=== PATIENT | male | born 1955 | race Caucasian/White ===

== ENCOUNTER 2017-01-23 08:12 | Day surgery (SDC) | payer OTHER ==
[~2017-01-23] VITALS: Ht 185.4 cm; Wt 105.0 kg
[~2017-01-23 08:12] MED LIST: ASPI325T32 PO; ATOR20TA65 PO; GEMF600T3 PO; LOSA100T29 PO; Sodium Chloride LOK Flush 10 mL Syringe IV PRN; ZOLP10TA5 PO; fentaNYL-PF 50 mCg/mL 2 mL Inj IVPUSH PRN
[2017-01-23 08:28] VITALS: BP 133/77; PULSE 62; RESP 16; O2SAT 96
[2017-01-23] MEDS: 0.9% Sodium Chloride 1,000 ML IV SCH ×2 (09:08→09:22)
[2017-01-23 09:30] VITALS: BP 131/64; PULSE 56; RESP 16; O2SAT 98
[2017-01-23 09:40] VITALS: BP 115/67; PULSE 67; RESP 16; O2SAT 96
--- NOTE | 2017-01-23 09:55 | ENDO ---
[address] [address] ENDOSCOPY PROCEDURE PATIENT: MELO RAZO : 1955 MR#: [id number] ADMIT: 01/23/2017 JOB ID: [id number] DATE: 01/23/2017 PREOPERATIVE DIAGNOSIS: Personal history of colon polyps. POSTOPERATIVE DIAGNOSIS: Two descending colon polyps. OPERATION: Colonoscopy to cecum with snare polypectomy with cautery. SURGEON: Terry Vieira M.D. INDICATIONS: The patient is a 61-year-old man who a year ago had six colon polyps. He is now here for followup. FINDINGS: He had a fair prep. The scope was advanced into the terminal ileum and was advanced about a foot and the mucosa of the terminal ileum was normal. As the scope was withdrawn over 17 minutes and 10 seconds, two polyps were identified very close to each other in the proximal descending colon. They were removed with a snare, the first was a cold snare, the second was with cautery. Both were retrieved and submitted as a single specimen. No other polyps were identified and retroflexed views of the rectum were normal. I saw no inflammatory lesions and I did not identify any diverticula. DESCRIPTION OF PROCEDURE: The procedure and sedation plan was discussed with the patient and nursing staff, and a procedural time-out was held. He received 5 mg of Versed and 100 mcg of fentanyl. A digital rectal examination was performed. The Olympus PCF H 190 DL video colonoscope was advanced transanally, advanced to the cecum and into the terminal ileum. Then withdrawn with the results of procedures as discussed above. The patient tolerated the procedure well. There were no apparent complications. IMPRESSION: Two proximal descending colon polyps, histology pending. RECOMMENDATIONS: Repeat colonoscopy five years.
--- NOTE | 2017-01-30 09:30 | PATH ---
SURGICAL PATHOLOGY Attending Physician:Feroz Garcia CASE STATUS: Signed Out PATIENT NAME: MELO RAZO PID: [id number] : 1955 DATE COLLECTED:01/23/2017 15:51 SPECIMEN: Colon, Polyp CLINICAL HISTORY: 1. DESCENDING COLON POLYP FINAL DIAGNOSIS: Descending Colon, Polyp, Biopsy: Tubular adenoma; negative for high-grade dysplasia. ICD10: K63.5 GROSS DESCRIPTION: The specimen is received in formalin, labeled with the patient's name, sublabeled as descending colon polyp, and consists of a fry-white glistening rubbery sessile polyp (0.5 x 0.3 x 0.2 cm) multiple fragments of resendiz glistening translucent tissue (0.5 x 0.4 x 0.1 cm in aggregate). Ink code: black-resection margin. Section code: (A) bisected polyp and tissue. Specimen is entirely submitted. 01/23/17 ICD-9 CODES: CPT CODES: 1: 59498 Electronically Signed Out Judy Brown MD [facility] [address], [place] [address] Technical component performed at [facility], [address] [place] [address] [address], [place], [address]
== END 2017-01-23 23:59 | disposition home or self-care (01) ==
LOC: END 08:12
PROVIDERS: ATTEND Surgery
DX: D12.4 Benign neoplasm of descending colon (principal); Z86.010 Personal history of colon polyps; E66.9 Obesity, unspecified; E78.2 Mixed hyperlipidemia; I10 Essential (primary) hypertension
CPT/HCPCS: 45385; G0500; J2250; J3010; J7030